=== PATIENT | male | born 1955 | race Two or more races ===

== ENCOUNTER 2024-11-16 09:09 | Outpatient (CLI) | payer MEDICAID ==
[2024-11-16 10:03] LABS: Urine Protein, UAD 2+ (Negative); Urine WBC Clumps PRESENT /hpf (None Seen)
[2024-11-16 10:18] LABS: Hemoglobin 14.3 g/dL (13.5-17.5)
[2024-11-16 10:22] LABS: Hematocrit 43.3 % (41.0-53.0); Mean Corpuscular Hemoglobin 24.3 pg (28.0-32.0); Mean Corpuscular Volume 73.7 fL (80.0-100.0); Nucleated Red Blood Cells % 0.2 %
[2024-11-16 10:39] LABS: Alanine Aminotransferase 18 U/L (7-40); Alkaline Phosphatase 73 U/L (46-116); Anion Gap 8 (5-15); BUN/Creatinine Ratio 7.7 (10.0-20.0); Blood Urea Nitrogen 9 mg/dL (9-23); Calcium 9.4 mg/dL (8.7-10.4); Carbon Dioxide 27 mmol/L (20-31); Chloride 106 mmol/L (98-107); Glucose 102 mg/dL (74-106); Potassium 4.1 mmol/L (3.5-5.1); Sodium 141 mmol/L (136-145); Total Protein 7.2 g/dL (5.7-8.2); Triglycerides 64 mg/dL (< 150)
[2024-11-16 10:40] LABS: Albumin 4.5 g/dL (3.2-4.8); Bilirubin, Total 0.5 mg/dL (0.2-1.0); Cholesterol 180 mg/dL (< 200); HDL Cholesterol 51 mg/dL (40-59)
== END 2024-11-16 17:00 | disposition home or self-care (01) ==
LOC: LAB 09:09
PROVIDERS: ATTEND Nurse Practitioner Family
DX: I10 Essential (primary) hypertension (principal); E66.9 Obesity, unspecified; R73.9 Hyperglycemia, unspecified; Z00.01 Encounter for general adult medical examination with abnormal findings
CPT/HCPCS: 36415; 80053; 80061; 81001; 82043; 82306; 83036; 84153; 84443; 85025

== ENCOUNTER 2024-11-29 08:19 | Outpatient (CLI) | payer OTHER, MEDICAID ==
[~2024-11-29] VITALS: Ht 188 cm; Wt 108.4 kg
--- NOTE | 2024-12-05 18:26 | DVHSR ---
APPROVED REPORT Exam: Nuclear Stress Test Indication: Fatigue Ht: 6 ft 2 in Wt: 239 lbs BSA: 2.34 m2 HR: 65 bpm BP: 146/97 mmHg BMI: 30.68 Rhythm: NSR, First degree AV Block Medical History Medical History: Smoking, Abnormal EKG, HTN, Hyperlipidemia, Palpitations, Atrial Fibrillation, Diabe diomedes Medications: Eliquis, Benazepril, Vit D3 Allergies: No known drug allergies Stress Test Details Stress Test: Exercise stress testing was performed using a Reynaldo protocol. HR Resting HR: 65 bpmMax Heart Rate (APMHR): 153.414526 bpm Max HR Achieved: 136 bpmTarget HR (85% APMHR): 130.142780 bpm % of APMHR: 88.89 Recovery HR: 88 bpm HR response to stress: Normal HR response to stress BP Resting BP: 146/97 mmHg Max BP: 183/85 mmHg Recovery BP: 144/101 mmHg BP response to stress: Resting hypertension-appropriate response ECG Resting ECG: Sinus Rhythm Stress ECG: Sinus Tachycardia Arrhythmia: PVCs, PACs Recovery ECG: Sinus Rhythm Clinical Reason for Termination: Target HR achieved Stress Symptoms: None Exercise duration: 7 min 45 sec Exercise capacity: 10.1 METs Stress ECG Conclusion NON ISCHEMIC CLINICAL RESPONSE NON ISCHEMIC ECG RESPONSE INFERIOR PARTIAL REVERSIBLE DEFECT EF <40% NM EXAM: Myocardial Perfusion REST/STRESS Imaging Protocol: Rest Tc-99m/Stress Tc-99m 1 day Resting Data Rest SPECT myocardial perfusion imaging was performed in supine position 30 minutes following the int ravenous injection of 10.99 mCi of Tc-99m Sestamibi. Time of rest injection: 834 Date: 11/29/2024 Time of rest imagin Date: 11/29/2024 Administration Route: IV Administration Site: Left AC Exercise Stress At peak stress, the patient was injected intravenously with 31.3 mCi of Tc-99m Sestamibi. Time of stress injection: 957 Date: 11/29/2024 Time of stress imagin Date: 11/29/2024 Administration Route: IV Administration Site: Left AC Heart Rate at time of stress injection: 134 bpm. Patient continued to exercise for 1 minute(s). Gated Stress SPECT was performed 15 minutes after stress injection. The images were gated to evaluate regional wall motion and calculate left ventricular ejection fracti on. Comments Cardiolite injection at 6 minutes, 41 seconds into test. Nuclear Conclusion NON ISCHEMIC CLINICAL RESPONSE NON ISCHEMIC ECG RESPONSE INFERIOR PARTIAL REVERSIBLE DEFECT EF <40%
== END 2024-11-29 17:00 | disposition home or self-care (01) ==
LOC: Rad HDHVI 08:19
PROVIDERS: ATTEND Internal Medicine Cardiovascular Disease
DX: I44.0 Atrioventricular block, first degree (principal); R00.0 Tachycardia, unspecified; I49.3 Ventricular premature depolarization; I49.1 Atrial premature depolarization; I10 Essential (primary) hypertension; I48.91 Unspecified atrial fibrillation; I48.0 Paroxysmal atrial fibrillation; E11.9 Type 2 diabetes mellitus without complications; E78.5 Hyperlipidemia, unspecified; R07.89 Other chest pain; R94.31 Abnormal electrocardiogram [ECG] [EKG]; R00.2 Palpitations; F17.210 Nicotine dependence, cigarettes, uncomplicated
CPT/HCPCS: 78452; 93017; A9500; 96374

== ENCOUNTER 2024-12-06 09:43 | Outpatient (CLI) | payer OTHER, MEDICAID | END 2024-12-06 17:00 | disposition home or self-care (01) | LOC: Rad HDHVI 09:43 | PROVIDERS: ATTEND Internal Medicine Cardiovascular Disease | DX: I34.0 Nonrheumatic mitral (valve) insufficiency (principal); E78.5 Hyperlipidemia, unspecified | CPT/HCPCS: 93306 ==

== ENCOUNTER 2025-02-10 08:45 | Outpatient (CLI) | payer OTHER, MEDICAID ==
[2025-02-10 08:52] VITALS: BP 136/95; PULSE 55; RESP 17; O2SAT 94
[2025-02-10 09:06] VITALS: BP 157/80; PULSE 52; RESP 16; O2SAT 97
[2025-02-10] MEDS ORDERED: ASPI-498 OR (12:40)
[2025-02-10] MEDS ORDERED: CHOL500021 OR (12:40)
[2025-02-10] MEDS ORDERED: APIX5TAB PO (12:40)
[2025-02-10] MEDS ORDERED: BENA-36 PO (12:40)
== END 2025-02-10 17:00 | disposition home or self-care (01) ==
LOC: CHF HDHVI 08:45
PROVIDERS: ATTEND Internal Medicine Cardiovascular Disease
DX: Z01.810 Encounter for preprocedural cardiovascular examination (principal); R94.39 Abnormal result of other cardiovascular function study
CPT/HCPCS: 93005; G0463

== ENCOUNTER 2025-02-14 11:26 | Day surgery (SDC) | payer OTHER, MEDICAID ==
[2025-02-10 10:58] LABS: Hemoglobin 13.6 g/dL (13.5-17.5); Mean Corpuscular Hemoglobin 24.3 pg (28.0-32.0)
[2025-02-10 11:00] LABS: Hematocrit 41.6 % (41.0-53.0); Mean Corpuscular Volume 74.4 fL (80.0-100.0); Nucleated Red Blood Cells % 0.1 %
[2025-02-10 11:12] LABS: INR 1.08 (0.9-1.15); Partial Thromboplastin Time 31.5 SEC (24.5-34.5); Prothrombin Time 11.4 sec (9.3-11.8)
[2025-02-10 11:54] LABS: Calcium 9.3 mg/dL (8.7-10.4); Chloride 106 mmol/L (98-107); Potassium 4.3 mmol/L (3.5-5.1); Sodium 142 mmol/L (136-145)
[2025-02-10 11:55] LABS: Anion Gap 8 (5-15); Carbon Dioxide 28 mmol/L (20-31)
[2025-02-10 12:00] LABS: BUN/Creatinine Ratio 11.7 (10.0-20.0); Blood Urea Nitrogen 13 mg/dL (9-23); Glucose 96 mg/dL (74-106)
[~2025-02-14] VITALS: Ht 188 cm; Wt 108.9 kg
[2025-02-14] VITALS (7 sets, daily range): BP systolic 135–169; BP diastolic 95–98; PULSE 46–54; RESP 15–18; O2SAT 94–97
[~2025-02-14 11:26] MED LIST: APIX5TAB PO; ASPI-498 OR; BENA-36 PO; CHOL500021 OR
[2025-02-14] MEDS: IOHEXOL 350 MG/ML 100ML IJ ONE ×2 (12:30→13:47)
[2025-02-14] MEDS: fentaNYL CITRATE 100 MCG/2 ML VL ONE (12:36)
[2025-02-14] MEDS: ANGIOMAX 250 MG VIAL IV ONE (12:36)
[2025-02-14] MEDS: VERAPAMIL 2.5MG/ML INJ 2ML VIAL IV ONE (12:36)
[2025-02-14] MEDS: SODIUM CHL 0.9% 50 ML ONE (12:37)
[2025-02-14] MEDS: LIDOCAINE 2%HCL (LOCAL ANESTH.) INJ 20ML MDV ONE (12:37)
[2025-02-14] MEDS: MIDAZOLAM HCL 2MG/2ML 2ml VIAL (1mg/ml) ONE (12:37)
[2025-02-14] MEDS: NITROGLYCERIN 0.4MG/DOSE SPRAY 4.9GM ONE (13:56)
[2025-02-14] MEDS: CLOPIDOGREL BISULFATE 75 MG TAB ONE (13:59)
--- NOTE | 2025-02-14 14:21 | DVHOP ---
DATE OF SURGERY: 02/14/2025 PROCEDURES PERFORMED: * Selective left and right coronary angiography. * FFR of the circumflex artery and obtuse marginal 2. * Angioplasty, thrombectomy, and shockwave treatment of the circumflex and obtuse marginal 3. * Angioplasty with stent placement of the circumflex proximal with a 3.0 x 15 mm [place] stent and an angioplasty with stent placement of the obtuse marginal 2 with a 3 mm x 15 mm [place] stent. * Conscious sedation also given. There were no complications. The patient tolerated the procedure well. DESCRIPTION OF PROCEDURE: The patient was prepped and draped in a sterile condition. 1% Xylocaine was used to anesthetize the right groin. Using Cook needle, right femoral artery was engaged. Using Seldinger technique, a 6-[place] sheath in the right femoral artery. Using a 6-[place] JL4 catheter and 6-[place] JR4 catheter, selective left and right coronary angiography was performed. Using a 6-[place] pigtail catheter, ventriculogram was done. Then, the 6-[place] diagnostic system was exchanged for a 6-[place] interventional system. Using a 6-[place] XB3 guide catheter, the left main was cannulated. Using a Choice PT wire, we were able to cross the circumflex and obtuse marginal 2 lesions. Both were then thrombectomized following FFR. FFR was 0.75 both arteries and thrombectomy was done using a 3.0 x 15 mm thrombectomy shockwave catheter. Following that, obtuse marginal 2 had a stent 3.0 x 15 deployed at 14 atmospheres and a 3.0 x 15 mm [place] stent was deployed at the proximal circumflex at 18 atmospheres. There were no complications. The patient tolerated the procedure well. RESULTS: * Left main patent. Left anterior descending artery at the ostium has about 50% narrowing, but it may be more significant. We need to repeat an angiogram in about 6 weeks with intravascular ultrasound to determine the severity of the lesion. Since an ostial lesion, we are not able to use FFR. * Circumflex artery had a proximal 80% narrowing. Two obtuse marginal 2 had a mid 80% narrowing status post both were stented with a 3.0 x 15 mm Buzz Resolute stent with less than 10% residual stenosis. Obtuse marginal 1 did not have any flow restrictive lesion. * Left anterior descending artery had an ostial 60-70% narrowing that requires intravascular ultrasound. The first diagonal artery had about an 80% narrowing, small caliber, about 2.5 mm in size. * Right coronary artery is a nondominant vessel, about 2.5 mm in size, had 60% proximal narrowing. * Left ventricular function was preserved with an estimated EF of around 45%, mild global hypokinesis with an LVEDP of 5-10 mmHg with no gradient across the aortic valve. Temo Leone MD SA/EKT TID: [id number] RECEIPT: [id number]
--- NOTE | 2025-02-14 14:23 | DVHHP ---
ADMIT DATE: 02/14/2025 HISTORY OF PRESENT ILLNESS: The patient with history of: * Hypertension. * History of hyperlipidemia. * History of tobacco use, cigarette smoking. Now with signs and symptom complex of increasing chest pain, shortness of breath, and stress test showing inferior wall reversibility. The patient is currently on Eliquis, lisinopril for hypertension and for hyperlipidemia, and hypercoagulable state, frequent PVCs. The patient at this time now to undergo coronary angiography one for inferior wall reversibility and also for diminished left ventricular ejection fraction. He denies any history of CVA, denies any history of seizure disorder. No history of any movement disorder. No visual disturbances. No hearing deficit. No gastrointestinal symptoms such as dysphagia, diarrhea, constipation, irritable bowel syndrome, or inflammatory bowel disease. Denies any liver disease. Denies any GI symptomatology. No bleeding diathesis such as hematemesis, hemoptysis, hematochezia, or hematuria. No melena either. Lungs, no history of any recent pneumonia. Cardiovascular exam, no history of any myocardial infarction. Extremities unremarkable. Denies any fever or chills. He has no recent travel outside the country. PHYSICAL EXAMINATION: VITAL SIGNS: Blood pressure is 150/84, pulse of 76, O2 saturation 98% on room air. HEENT: Pupils are reactive. Funduscopic exam is benign. Sclerae are anicteric. No exudates noted. Tympanic membranes are negative. Oral mucosa moist. Posterior pharynx without any exudate. NECK: Supple. No nuchal rigidity appreciated. No cervical adenopathy. No supraclavicular adenopathy. He does not have any axillary adenopathy as well. Carotid pulses are 2+ symmetrical. Normal upstroke and contour. No JVD. Thyroid is within normal limits. PULMONARY: Clear to auscultation. Tympanic to percussion. No rhonchi. No wheezes. No egophony. CARDIOVASCULAR: Regular rate without S3 and S4. PMI is not displaced. ABDOMEN: Soft, nontender. Normal bowel sounds. Liver approximately 5 cm with percussion. No epigastric tenderness. No suprapubic tenderness. No CVA tenderness. ASSESSMENT AND PLAN: Thus, the patient with ongoing shortness of breath, history of tobacco use. History of inferior wall reversibility by stress Cardiolite. The patient is now to undergo coronary angiography to find coronary anatomy. Further recommendations after the angiogram. Temo Leone MD SA/DALIA TID: [id number] RECEIPT: [id number]
--- NOTE | 2025-02-14 14:33 | DVHDS ---
DATE OF DISCHARGE: 02/14/2025 DISCHARGE DIAGNOSES: * Coronary artery disease. * Left ventricular ejection fraction about 45% consistent with systolic heart failure, chronic. * Underwent successful angioplasty with stent placement of the obtuse marginal 2. * Angioplasty with stent placement of the proximal circumflex. HOSPITAL COURSE: The patient still has residual stenosis in the first diagonal, ostial LAD, and mid RCA. Even though the RCA lesion is small and is a nondominant vessel. EF was around 45%. The patient may be discharged home since he has been revascularized in the circumflex territory. We will bring him back in approximately 4-6 weeks for reevaluation of the LAD and the diagonal artery as well as the RCA. We will continue to follow the patient. Stable at the time of discharge. DISPOSITION: Home. ACTIVITY: As tolerated. DIET: 2 g sodium diet. He will be started on Plavix even though he is on Eliquis 75 mg once a day. We will continue to follow the patient. Temo Leone MD SA/COLIN TID: [id number] RECEIPT: [id number]
== END 2025-02-14 16:26 | disposition home or self-care (01) ==
LOC: CATH 11:26
PROVIDERS: ATTEND Internal Medicine Cardiovascular Disease
DX: R94.39 Abnormal result of other cardiovascular function study (principal); R06.02 Shortness of breath; I25.10 Atherosclerotic heart disease of native coronary artery without angina pectoris; I10 Essential (primary) hypertension; F17.210 Nicotine dependence, cigarettes, uncomplicated; E78.5 Hyperlipidemia, unspecified; Z79.01 Long term (current) use of anticoagulants; Z79.899 Other long term (current) drug therapy; Z79.82 Long term (current) use of aspirin
CPT/HCPCS: 36415; 80048; 85025; 85610; 85730; 92972; 92973; 93458; 93571; C1760; C1761; C1874; C1887; C1894; C9600; C9601; J0583; J1644; J2250; J3010; Q9967; 93572; 99152; 99153